=== PATIENT | male | born 1970 | race African-American/Black ===

== ENCOUNTER 2021-03-12 08:11 | Day surgery (SDC) | payer OTHER ==
[2021-03-10 17:30] VITALS: BMI 54.3
[2021-03-12] MEDS ORDERED: ONDANSETRON 4 MG/2 ML VIAL ONE (10:08)
[2021-03-12] MEDS ORDERED: ceFAZolin SODIUM 1 GM VIAL ONE (10:08)
[2021-03-12] MEDS ORDERED: MIDAZOLAM HCL 2 MG/2 ML SINGLE DOSE VIAL ONE (10:09)
[2021-03-12] MEDS ORDERED: PROPOFOL 20 ML ONE ×2 (10:09)
[2021-03-12] MEDS ORDERED: EPINEPHrine 1:1,000 1 MG/1 ML - 30ML VIAL (INJECTION) ONE (10:10)
[2021-03-12] MEDS ORDERED: BUPIVACAINE HCL/PF 2.5 MG/ML - 30 ML VIAL IJ ONE (10:10)
[2021-03-12] MEDS ORDERED: KETOROLAC TROMETHAMINE 30 MG/1 ML VIAL ONE (11:09)
[2021-03-12] MEDS ORDERED: ONDANSETRON 4 MG/2 ML VIAL IVPUSH PRN (11:46)
[2021-03-12] MEDS ORDERED: oxyCODONE HCL 5 MG TABLET PO PRN (11:46)
[2021-03-12] MEDS ORDERED: ACETAMINOPHEN 1000 MG/100 ML VIAL (NON FORMULARY) IVPB PRN (11:47)
[2021-03-12] MEDS ORDERED: LACTATED RINGERS SOLUTION 1,000 ML IV SCH (12:00)
[2021-03-12 12:56] VITALS: PULSE 88; TEMP 97.8
[2021-03-12] MEDS ORDERED: oxyCODONE HCL 5 MG TABLET ONE (13:12)
[2021-03-12 14:05] VITALS: BP 148/89
== END 2021-03-12 14:00 | disposition home or self-care (01) ==
LOC: FASU 08:11
PROVIDERS: ATTEND Orthopaedic Surgery
PROC: 0SBC4ZZ Excision of Right Knee Joint, Percutaneous Endoscopic Approach (ICD-10-PCS; 2021-03-12)
PROC: 0SBC4ZZ Excision of Right Knee Joint, Percutaneous Endoscopic Approach (ICD-10-PCS; 2021-03-12)
PROC: 0SBC4ZZ Excision of Right Knee Joint, Percutaneous Endoscopic Approach (ICD-10-PCS; principal; 2021-03-12 11:05)
DX: S83.241A Other tear of medial meniscus, current injury, right knee, initial encounter (principal); S83.281A Other tear of lateral meniscus, current injury, right knee, initial encounter; S83.8X1A Sprain of other specified parts of right knee, initial encounter; M65.861 Other synovitis and tenosynovitis, right lower leg; X58.XXXA Exposure to other specified factors, initial encounter; Y93.9 Activity, unspecified; Y92.9 Unspecified place or not applicable
CPT/HCPCS: 82962; 88304-TC; 94760; J0131